=== PATIENT | female | born 1980 | race Caucasian/White ===

== ENCOUNTER 2020-06-14 14:49 | Emergency (ER) | payer OTHER ==
[2020-06-14 15:03] VITALS: BP 118/58; PULSE 88; TEMP 98; BMI 25.7
--- NOTE | 2020-06-14 15:30 | PDOC ---
Suture Removal/Wound Check HPI - History of Present Illness Chief Complaint: Suture/Staple Removal(Here) Stated Complaint: REMOVE STITCHES Time Seen by Provider: 06/14/20 15:02 History Source: Yes: Patient Exam Limitations: Yes: No Limitations Treated at: Other ED ([facility] ED) - Previous ED Treatment Type of procedure performed on last visit: Yes: Laceration Repair Past History - Travel History Traveled outside of the country in the last 30 days: No Close contact w/someone who was outside of country & ill: No - Medical History Allergies/Adverse Reactions: Allergies Allergy/AdvReac Type Severity Reaction Status Date / Time No Known Allergies Allergy Verified 10/15/12 05:10 Home Medications: Ambulatory Orders Bisacodyl [Dulcolax] 5 mg PO TID PRN #20 tablet. 10/15/12 No Home Medications 0 dose .ROUTE UTDICT 10/15/12 Asthma: No Cancer: No Cardiac Disorders: No Diabetes: No HTN: No Seizures: No Thyroid Disease: No - Reproductive History Is Patient Now?: No - Immunization History Td Vaccination: Yes Immunization Up to Date: Yes - Psycho-Social/Smoking History Smoking Status: No Smoking History: Never smoked Years of Tobacco Use: 0 Have you smoked in the past 12 months: No Number of Cigarettes Smoked Daily: 0 Cigars Per Day: 0 Information on smoking cessation initiated: No - Substance Abuse Hx (Audit-C & DAST Scrn) How often the patient has a drink containing alcohol: Never Score: In Men: 4 or > Positive; In Women: 3 or > Positive: 0 Screen Result (Pos requires Nsg. Audit-10AR): Negative In the last yr the pt used illegal drug/Rx for NonMed reason: No Score: Yes response is considered Positive: 0 Screen Result (Positive result requires Nsg. DAST-10): Negative Suture Removal/Wound Check PE - Physical Exam Laceration/Wound Check Symptoms: reports: None, Other Comment (two knots felt subcutanously to the previous suture site.) Current Severity Level: None Maximum Severity Level: None Pain Localization: None Location of Laceration/Wound: right: Head (r forehead, no sutures currently visible. 1cm healed laceration.) *Review of Systems - Review of Systems Constitutional: No: Chills, Fever, Weakness Integumentary: Yes: Other (pain to suture site) Neurological: No: Headache All Other Systems: Reviewed and Negative *Physical Exam - Vital Signs Last Vital Signs Temp Pulse Resp BP Pulse Ox 98.0 F 88 16 118/58 L 98 06/14/20 14:56 06/14/20 14:56 06/14/20 14:56 06/14/20 14:56 06/14/20 14:56 Medical Decision Making - Medical Decision Making 06/14/20 15:28 The patient is a 40-year-old female who presents to the ER today for suture removal to her right forehead. She states she had the sutures placed 3 weeks ago at [facility] after falling and hitting her head on a metal bench. She states that the stitches hurt and she would like them out at this time. Denies fevers, chills or redness to the area. A/P: Wound check On exam pt with no visable stitches Pt presents paperwork from [facility]. Pt has absorbable stitches; nothing to remove at this time DC home with plastics follow up Discharge - Discharge Information Problems reviewed: Yes Clinical Impression/Diagnosis: Visit for wound check Condition: Stable Disposition: HOME - Admission No - Follow up/Referral Referrals: Chaparro Erickson MD [Staff Physician] - - Patient Discharge Instructions Additional Instructions: You have absorbable stitches. They will go into the body on their own Apply warm compresses to the area to help them go into the body You may apply mederma to the area as well to help smooth it out. You can buy this over the counter at the pharmacy. You may take Tylenol and Motrin as needed for pain. Follow the dosing instruction on the bottle. You paper work from [facility] shows that you had a nodule on your chest x-ray that needs follow up with your primary care doctor. Please call them this week for an appointment. Return to the ER for any new or worsening symptoms. Tiene puntos de sutura absorbibles. Entrarn al cuerpo por nugent cuenta Aplique compresas tibias en el tegan para ayudarlos a entrar en el cuerpo. Tambin puede aplicar mederma en el tegan para ayudar a suavizarla. Puede comprarlo sin receta en la farmacia. Puede lise Tylenol y Motrin segn sea necesario para el dolor. Siga las instrucciones de dosificacin del frasco. Nugent papeleo de [place] muestra que joaquin un ndulo en la radiografa de trax que necesita un seguimiento con nugent mdico de atencin primaria. Llmelos esta semana para concertar daniel irma. Regrese a la pete de emergencias por cualquier sntoma nuevo o que empeore. Print Language: SPA - Post Discharge Activity
== END 2020-06-14 15:53 | disposition home or self-care (01) ==
LOC: JERFT 14:49
DX: Z48.00 Encounter for change or removal of nonsurgical wound dressing (principal)
CPT/HCPCS: 99281-25

== ENCOUNTER 2020-12-21 17:33 | Emergency (ER) | payer OTHER ==
[2020-12-21 17:59] VITALS: BMI 23.1
[2020-12-21] MEDS ORDERED: ONDANSETRON 4 MG/2 ML VIAL IVPUSH ONE (20:26)
[2020-12-21] MEDS ORDERED: ACETAMINOPHEN 1000 MG/100 ML VIAL (NON FORMULARY) IVPB ONE (20:26)
[2020-12-21] MEDS ORDERED: SODIUM CHLORIDE 0.9% 500 ML INFUS.BAG IV ONE (20:26)
[2020-12-21] MEDS ORDERED: morphine CARPU-JECT 2 MG/1 ML DISP.SYRIN IVPUSH ONE (20:43)
[2020-12-21] MEDS ORDERED: FAMOTIDINE 20 MG/50 ML IVPB 20 MG/50 ML MG IVPB ONE ×2 (20:43→22:28)
[2020-12-21] MEDS ORDERED: ONDANSETRON 4 MG/2 ML VIAL ONE (20:44)
[2020-12-21] MEDS ORDERED: ACETAMINOPHEN INJECTION 100 ML IVPB ONE (20:44)
[2020-12-21 21:48] LABS: BASO % 0.5 % (0-2.0); HEMATOCRIT 39.2 % (32.4-45.2); HEMOGLOBIN 13.2 GM/dL (10.7-15.3); LYMPH % 35.2 % (8-40); MCH 30.5 pg (25.7-33.7); MCHC 33.6 g/dl (32.0-36.0); MEAN PLT VOLUME 11.5 fl (7.5-11.1); MONO % 5.7 % (3.8-10.2); NEUT % 56.6 % (42.8-82.8); PLATELET COUNT 175 K/MM3 (134-434); RBC 4.31 M/mm3 (3.60-5.2); RDW 13.4 % (11.6-15.6); WHITE BLOOD COUNT 8.7 K/mm3 (4.0-10.0)
[2020-12-21 21:51] LABS: EPI CELLS >36 /uL (0-25.1); HYALINE CASTS 0 /uL (0-3.1); PH,URINE 5.5 (5.0-8.0); URINE APPEARANCE CLOUDY; URINE BACTERIA 765 /uL (0-1359); URINE BILIRUBIN NEGATIVE (NEGATIVE); URINE COLOR YELLOW; URINE GLUCOSE (UA) NEGATIVE (NEGATIVE); URINE KETONE 1+ (NEGATIVE); URINE LEUK ESTERASE 1+ (NEGATIVE); URINE NITRITE NEGATIVE (NEGATIVE); URINE PROTEIN NEGATIVE (NEGATIVE); URINE RBC 5 /uL (0-23.9); URINE UROBILINOGEN 0.2 mg/dL (0.2-1.0); URINE WBC 67 /uL (0-25.8)
[2020-12-21 22:12] LABS: CALCIUM 9.4 mg/dL (8.5-10.1); GLUCOSE,RANDOM 82 mg/dL (74-106); LIPASE 112 U/L (73-393); MAGNESIUM 2.2 mg/dL (1.8-2.4)
[2020-12-21 22:26] LABS: CHLORIDE 104 mmol/L (98-107); SODIUM 136 mmol/L (136-145)
[2020-12-21 22:27] LABS: ANION GAP 8 MMOL/L (8-16); CO2 24 mmol/L (21-32)
[2020-12-21] MEDS ORDERED: MORPHINE SULFATE 2 MG/ML VIAL ONE (22:28)
[2020-12-21 23:09] LABS: ALK PHOS 54 U/L (45-117); BILIRUBIN,TOTAL 0.4 mg/dL (0.2-1); CHOLESTEROL 190 mg/dL (50-200); CREATININE 0.6 mg/dL (0.55-1.3); HDL CHOLESTEROL 73 mg/dL (40-60); LDL CHOLESTEROL (ONLY SJRH) 99 mg/dL (5-100); SGOT/AST 34 U/L (15-37); SGPT/ALT 40 U/L (13-61); TOT PROT 7.8 g/dl (6.4-8.2); TRIGLYCERIDES 41 mg/dL (0-150)
[2020-12-22 02:12] VITALS: BP 120/45; PULSE 65; TEMP 98.4
[2020-12-22] MEDS ORDERED: FLUCONAZOLE 150 MG TABLET PO ONE ×2 (02:27→03:06)
[2020-12-22] MEDS ORDERED: metroNIDAZOLE 500 MG TABLET PO ONE (02:41)
[2020-12-22] MEDS ORDERED: AZITHROMYCIN 500 MG TABLET PO ONE (02:41)
[2020-12-22] MEDS ORDERED: AZITHROMYCIN 250 MG TABLET ONE (03:06)
[2020-12-22] MEDS ORDERED: cefTRIAXone SODIUM 1 GM VIAL ONE (03:06)
[2020-12-22] MEDS ORDERED: metroNIDAZOLE 250 MG TABLET ONE (03:07)
[2020-12-22] MEDS ORDERED: LIDOCAINE HCL 1%, 10 MG/ML (20ML VIAL) ONE (03:08)
== END 2020-12-22 03:59 | disposition home or self-care (01) ==
LOC: JER 17:33
PROC: 3E033NZ Introduction of Analgesics, Hypnotics, Sedatives into Peripheral Vein, Percutaneous Approach (ICD-10-PCS; principal; 2020-12-21)
PROC: 3E033GC Introduction of Other Therapeutic Substance into Peripheral Vein, Percutaneous Approach (ICD-10-PCS; 2020-12-21)
DX: R10.84 Generalized abdominal pain (principal); N98.8 Other complications associated with artificial fertilization
CPT/HCPCS: 36415; 71045-TC-FY; 74177-TC; 76830-TC; 80053; 80061; 81003; 82550; 82553; 83690; 83721; 83735; 84100; 84484; 84703; 85025; 87086; 93005; 93010; 99285-25; J0131